=== PATIENT | female | born 1970 | race Caucasian/White ===

== ENCOUNTER → 2017-03-18 | Outpatient (CLI) | payer OTHER ==
--- NOTE | 2017-03-18 13:51 | KCIC ---
Bilateral digital screening mammograms: Reason for examination: Routine screening. Comparison is made to previous studies dated 02/28/2016 and 02/22/2015. The skin and nipples show no abnormalities. No abnormal axillary lymph nodes are seen. The breast parenchyma is heterogeneously dense. (Breast density: Category C.) There appear to be circumscribed nodules probably representing cysts bilaterally. This can be further evaluated with ultrasound. There are no suspicious calcifications or architectural distortion. Impression: Circumscribed nodules bilaterally which probably represent cysts. Recommend further evaluation with ultrasound. Your patient's mammogram demonstrates that she has dense breast tissue (breast density category C or D), which could hide abnormalities, and if she has other risk factors for breast cancer that have been identified, she might benefit from supplemental screening tests that may be suggested by you as her ordering physician. Dense breast tissue, in and of itself, is a relatively common condition. Therefore, this information is not provided to cause undue concern, but rather to raise your awareness and to promote discussion with your patient regarding the presence of other risk factors, in addition to dense breast tissue. Your patient's mammography results will be sent to her. BI-RAD Category 0: Incomplete. Ultrasound follow-up is recommended. "Our facility is accredited by the [employer] Mammography [employer]." This patient's information has been entered into a reminder system for the patient to be notified with the results of her examination and a target date for the next mammogram. Electronically signed by: Rosina Hedrick MD (03/18/2017 1:48 PM)
== END | disposition home or self-care (01) ==
LOC: KCIC MAMMO 10:25
PROVIDERS: ATTEND Family Medicine
DX: Z12.31 Encounter for screening mammogram for malignant neoplasm of breast (principal)
CPT/HCPCS: G0202; 77067

== ENCOUNTER → 2017-03-20 | Outpatient (CLI) | payer OTHER ==
--- NOTE | 2017-03-20 15:44 | RAD ---
Indication well circumscribed masses. Screening ultrasound examination was performed. Note is made of the screening mammogram 2 days ago. Screening ultrasound of the right breast demonstrates numerous cysts. Largest measures approximately 1 cm. No dominant soft tissue mass is seen. Views of the left breast also demonstrates several cysts the largest measuring approximately 1.5 cm. IMPRESSION: Bilateral renal cysts. Return to routine screening mammography advised. BI-RADS 2. Benign findings.
== END | disposition home or self-care (01) ==
LOC: KCIC US 14:22
PROVIDERS: ATTEND Family Medicine
DX: R92.8 Other abnormal and inconclusive findings on diagnostic imaging of breast (principal)
CPT/HCPCS: 76641

== ENCOUNTER → 2018-08-10 | Outpatient (CLI) | payer OTHER ==
--- NOTE | 2018-08-10 16:35 | KCIC ---
Bilateral digital screening mammograms with 3-D tomosynthesis: Reason for examination: Routine screening. Comparison is made to previous studies dated back to 03/07/2014. Bilateral mammograms in CC and oblique projections were obtained with 2-D imaging and 3-D tomosynthesis imaging on a Siemens Inspiration unit and reviewed on the workstation. Interpretation was made with the benefit of CAD. The skin and nipples show no abnormalities. No abnormal axillary lymph nodes are seen. The breast parenchyma is extremely dense. (Breast density: Category D.) There continue to be circumscribed nodules consistent with cysts present. There are no suspicious calcifications or architectural distortion. Benign calcifications are present. Impression: No evidence of malignancy. Recommend routine screening. Your patient's mammogram demonstrates that she has dense breast tissue (breast density category C or D), which could hide abnormalities, and if she has other risk factors for breast cancer that have been identified, she might benefit from supplemental screening tests that may be suggested by you as her ordering physician. Dense breast tissue, in and of itself, is a relatively common condition. Therefore, this information is not provided to cause undue concern, but rather to raise your awareness and to promote discussion with your patient regarding the presence of other risk factors, in addition to dense breast tissue. Your patient's mammography results will be sent to her. BI-RAD Category 2: Benign. "Our facility is accredited by the [employer] Mammography [employer]." This patient's information has been entered into a reminder system for the patient to be notified with the results of her examination and a target date for the next mammogram. Electronically signed by: Rosina Hedrick MD (08/10/2018 4:32 PM) [id number]
== END | disposition home or self-care (01) ==
LOC: KCIC MAMMO 15:24
PROVIDERS: ATTEND Family Medicine
DX: Z12.31 Encounter for screening mammogram for malignant neoplasm of breast (principal)
CPT/HCPCS: 77063; 77067

== ENCOUNTER → 2018-11-18 | Outpatient (CLI) | payer OTHER ==
[~2018-11-18] MED LIST: CONTRAST GIVEN. MC PRN; IOHEXOL 240 MG/ML 50ML VIAL. PO ONE; IOHEXOL 300 MG/ML 100ML VIAL. IV ONE
--- NOTE | 2018-11-18 15:36 | KCIC ---
Examination: CT of the abdomen pelvis with oral and IV contrast HISTORY: History of left lower quadrant abdominal pain for one month COMPARISON: None available Technique: Axial CT images of the abdomen pelvis were performed with IV contrast. Coronal and sagittal reformats are performed Exposure: One or more of the following individualized dose reduction techniques were utilized for this examination: 1. Automated exposure control 2. Adjustment of the mA and/or kV according to patient size 3. Use of iterative reconstruction technique FINDINGS: The bibasilar lungs are clear. No evidence of free air identified in the abdomen. The visualized liver demonstrates a peripherally enhancing structure in the right lobe of the liver measuring 2.1 cm possibly hemangioma. The visualized spleen, adrenals grossly appears unremarkable The gallbladder is mildly distended The stomach is mildly distended. The visualized pancreas grossly appears unremarkable. The small bowel is nondilated Feces and gas noted in the colon Appendix is normal. Feces and gas noted in the colon Urinary bladder is mildly distended The bilateral kidneys enhance symmetrically. Mild degenerative changes lumbar spine IMPRESSION: 1. 2.1 cm peripherally enhancing cystic structure identified in the right lobe of the liver probably hemangioma however evaluation is limited. Follow-up ultrasound or MRI can be considered. Electronically signed by: Asif Carmona MD (11/18/2018 3:32 PM) [place] [id number]
== END | disposition home or self-care (01) ==
LOC: KCIC CT 12:34
PROVIDERS: ATTEND Family Medicine
DX: K76.89 Other specified diseases of liver (principal); N32.89 Other specified disorders of bladder; K31.89 Other diseases of stomach and duodenum; K82.8 Other specified diseases of gallbladder
CPT/HCPCS: 74177; Q9966; Q9967

== ENCOUNTER → 2020-03-22 | Outpatient (CLI) | payer BC, OTHER ==
--- NOTE | 2020-03-22 17:48 | KCIC ---
Bilateral digital screening mammograms with 3-D tomosynthesis: Reason for examination: Routine screening. Comparison is made to previous studies dated back to 02/28/2016. Bilateral mammograms in CC and oblique projections were obtained with 2-D imaging and 3-D tomosynthesis imaging on a Siemens Inspiration unit and reviewed on the workstation. Interpretation was made with the benefit of CAD. The skin and nipples show no abnormalities. No abnormal axillary lymph nodes are seen. The breast parenchyma is extremely dense. (Breast density: Category D.) There are enlarging nodules measuring up to at least 3 cm in size in the left breast which probably represents enlargement of cysts seen previously on ultrasound examination. Reevaluation with ultrasound is recommended. There are no suspicious calcifications seen. Impression: Enlarging nodules measuring up to 3 cm in size in left breast which probably represent cysts seen previously. Reevaluation with ultrasound is recommended. Your patient's mammogram demonstrates that she has dense breast tissue (breast density category C or D), which could hide abnormalities, and if she has other risk factors for breast cancer that have been identified, she might benefit from supplemental screening tests that may be suggested by you as her ordering physician. Dense breast tissue, in and of itself, is a relatively common condition. Therefore, this information is not provided to cause undue concern, but rather to raise your awareness and to promote discussion with your patient regarding the presence of other risk factors, in addition to dense breast tissue. Your patient's mammography results will be sent to her. BI-RAD Category 0: Incomplete. Needs additional imaging evaluation. "Our facility is accredited by the [employer] Mammography Program." This patient's information has been entered into a reminder system for the patient to be notified with the results of her examination and a target date for the next mammogram. Electronically signed by: Rosina Hedrick MD (03/22/2020 5:45 PM) [id number]
== END | disposition home or self-care (01) ==
LOC: KCIC MAMMO 11:02
PROVIDERS: ATTEND Family Medicine
DX: Z12.31 Encounter for screening mammogram for malignant neoplasm of breast (principal)
CPT/HCPCS: 77063; 77067

== ENCOUNTER → 2020-03-29 | Outpatient (CLI) | payer BC ==
--- NOTE | 2020-03-29 17:07 | RAD ---
Examination: BREAST LEFT History: Reason: abnormal mammo / Spl. Instructions: / History: Comparison/Correlation: 03/22/2020 screening mammographic exam Findings: Ultrasound imaging of the left breast was performed. Left axilla also was imaged. At the left breast 5:00 region 4 cm from nipple, there is a 3.2 cm x 2.3 cm x 1.2 cm tall simple cyst. Additional cysts at the 12:00 region is present measuring 1.1 cm in diameter. Small simple cysts of the 1:00 and 2:00 region also are present measuring up to 1 diameter. In the 10:00 retroareolar region, there is a 2.1 cm diameter simple cyst. Left axilla is normal. Impression: BI-RADS Category 2-benign. Simple left breast cysts are present. No suspicious finding. Electronically signed by: Lee Sewell MD (03/29/2020 5:04 PM) [id number]
== END | disposition home or self-care (01) ==
LOC: US 14:17
PROVIDERS: ATTEND Family Medicine
DX: R92.2 Inconclusive mammogram (principal); N60.02 Solitary cyst of left breast
CPT/HCPCS: 76641